=== PATIENT | male | born 1960 | race Caucasian/White ===

== ENCOUNTER 2017-10-03 14:05 | Emergency (ER) | payer OTHER, SELFPAY ==
[2017-10-03 14:22] VITALS: BP 151/105; PULSE 86; RESP 14; TEMP 36.9; O2SAT 97; BMI 30.1
--- NOTE | 2017-10-03 15:19 | ED.SKABFB ---
HPI - Skin/Abscess/Foreign Bdy <Germaine Gee PA-C - Last Filed: 10/03/17 22:27> General Chief complaint: Skin/Abscess/Foreign Body Stated complaint: RIGHT ARM TENDER AND RED Time Seen by Provider: 10/03/17 15:19 Source: patient Mode of arrival: ambulatory Limitations: no limitations History of Present Illness HPI narrative: This 57-year-old male comes in due to right wrist and forearm pain and redness. He states that he had an IV yesterday near the right wrist, seemed okay right after but then today noticed that the area around the vein seem tender and has had increasing redness. He states he is not having any weakness, paresthesia or difficulty moving the wrist or arm but it is a little bit tender when the skin is stretched. He has not had any fever, chills, or sweats at home. He denies any other new symptoms or complaints today. Related Data Previous Rx's Medication Instructions Recorded cephalexin [Keflex] 500 mg PO Q6H 7 Days #28 cap 10/03/17 Allergies Allergy/AdvReac Type Severity Reaction Status Date / Time No Known Drug Allergies Allergy Verified 10/03/17 14:22 Review of Systems <Germaine Gee PA-C - Last Filed: 10/03/17 22:27> Review of Systems All systems reviewed & are unremarkable except as noted in HPI and below Exam <Germaine Gee PA-C - Last Filed: 10/03/17 22:27> Narrative Exam Narrative: GENERAL APPEARANCE: Patient sitting comfortably, in no distress. LUNGS: Clear to auscultation bilaterally. HEART: Rate and rhythm regular without murmur, normal S1 and S2, no S3 or S4. DERM: Right mid wrist dorsum there is a tender, mildly enlarged vein. Tender along the course of the vein but there is also erythema in an irregular pattern extending up to the mid forearm, more notable on the lateral and midline. Margins Inked. This does not extend down to the hand or up past the mid arm. There is no erythema on the anterior surface. MS: Full AROM of the R. wrist, hand and elbow Initial Vital Signs Initial Vital Signs: Vital Signs Temperature 98.5 F 10/03/17 14:22 Pulse Rate 86 10/03/17 14:22 Respiratory Rate 14 10/03/17 14:22 Blood Pressure 151/105 H 10/03/17 14:22 Pulse Oximetry 97 10/03/17 14:22 <Edilberto Parham MD - Last Filed: 10/04/17 18:17> Initial Vital Signs Initial Vital Signs: Vital Signs Temperature 98.5 F 10/03/17 14:22 Pulse Rate 86 10/03/17 14:22 Respiratory Rate 14 10/03/17 14:22 Blood Pressure 151/105 H 10/03/17 14:22 Pulse Oximetry 97 10/03/17 14:22 Course <Germaine Gee PA-C - Last Filed: 10/03/17 22:27> Vital Signs - 8 hr 10/03/17 14:22 Temperature 98.5 F Pulse Rate 86 Respiratory Rate 14 Blood Pressure 151/105 H Pulse Oximetry 97 <Edilberto Parham MD - Last Filed: 10/04/17 18:17> Vital Signs - 8 hr 10/03/17 14:22 Temperature 98.5 F Pulse Rate 86 Respiratory Rate 14 Blood Pressure 151/105 H Pulse Oximetry 97 Discharge Plan Departure Patient Disposition: Home, Self-Care Clinical Impression: Cellulitis, Phlebitis Discharge Date/Time: 10/03/17 15:36 Interventions: ED Discharge Assessment Last Done: 10/03/17 15:36 Instructions: DI for Cellulitis -- Adult Activity Restrictions/Additional Instructions: Return as we talked about if you have acutely worsening symptoms, or new symptoms such as fever. Otherwise, start the antibiotic as soon as you pick it up and take about every 6 hr/4 times daily. You can use a warm pack over the sore vein as needed and take ibuprofen every 8 hr for pain and swelling. We recommend that you follow up with your PCP in a few days to assess progress on the antibiotic Prescriptions: New cephalexin [Keflex] 500 mg capsule 500 mg PO Q6H 7 Days Qty: 28 RF: 0 Referrals: HECTOR, Kirk Chaudhry [Other] <Edilberto Parham MD - Last Filed: 10/04/17 18:17> Cosign ED Attending Cosignature Attestation: I was available in the emergency department to answer questions and assist if needed. I agree with the document content and management plan.
== END 2017-10-03 15:36 | disposition home or self-care (01) ==
PROVIDERS: Emergency Provider Internal Medicine
DX: L03.113 Cellulitis of right upper limb (principal)
CPT/HCPCS: 99282

== ENCOUNTER → 2018-01-31 11:08 | Outpatient (CLI) | payer OTHER, SELFPAY ==
--- NOTE | 2018-01-31 | DI.CT.S_ITS ---
PROCEDURE: CT UE RT WO CON INDICATIONS: Pain in right elbow unable to straigten TECHNIQUE: Noncontrast 1-1.5 mm axial sections were acquired through the elbow joint, with coronal and sagittal reformats. COMPARISON: None. FINDINGS: Image quality: Excellent. Bones: No definite fracture or focal osseous destruction. There is extensive diffuse degenerative spurring and bulky osteophyte formation. Alignment is anatomic. Sub-5 mm chronic appearing ossicle seen adjacent to the olecranon within the posterior joint space for example image 44 series 4. These could be ununited osteophytes or loose bodies. Additional sub-5 mm possible loose body seen on image 64 series 5 of the junction of the radiocapitellar and ulnotrochlear articulation. There is narrowing of the radiocapitellar and ulnotrochlear joint spaces. Soft tissues: Grossly unremarkable appearance of the visualized muscles. A small joint effusion is present. IMPRESSION: Advanced right elbow joint degeneration. Bulky osteophyte formation. Sub-5 mm multiple loose bodies as above Joint effusion. Dictated by: Venkata Coronado M.D. on 01/31/2018 at 11:43 Approved by: Venkata Coronado M.D. on 01/31/2018 at 11:51
== END ==
PROVIDERS: Visit Provider Internal Medicine
DX: M19.021 Primary osteoarthritis, right elbow (principal); M25.521 Pain in right elbow; M24.021 Loose body in right elbow; M25.421 Effusion, right elbow
CPT/HCPCS: 73200

== ENCOUNTER 2022-03-28 08:33 | Emergency (ER) | payer OTHER, SELFPAY ==
[2022-03-28 08:53] VITALS: BP 156/84; PULSE 59; RESP 16; TEMP 36.7; O2SAT 97
[2022-03-28 08:54] VITALS: BP 156/84; PULSE 59; O2SAT 97
[2022-03-28 09:07] VITALS: BP 157/100; PULSE 66; RESP 18; TEMP 37.1; O2SAT 97; BMI 30.8
--- NOTE | 2022-03-28 09:07 | ED_ITS ---
HPI - Eye Problem General Chief complaint: Eye Problems Stated complaint: Flashing and floater in [place] x2 Time Seen by Provider: 03/28/22 09:07 History of Present Illness HPI Narrative: Patient here for floaters in his vision with the left eye. Patient states feels the same with his right retina detachment last year. Never had sensation of curtain been drawn down on the right eye last year or with the left eye this time. This episode started 2 days ago. Denies any injury. Patient wears glasses for far distance and for reading only. No contact lenses. No history of glaucoma or cataracts. On left eye visual acuity is 20/15. Patient is 20/13 for both eyes. Denies any eye pain. No double vision or blurry vision. Patient saw [facility] in [place] [facility] to [facility] Related Data Allergies Allergy/AdvReac Type Severity Reaction Status Date / Time No Known Drug Allergies Allergy Verified 10/03/17 14:22 Review of Systems Review of Systems Narrative: GENERAL: negative chills, fatigue, malaise, fever, sweats. HEENT: negative sinus pain, ear pain, sore throat, positive visual changes, negative eye pain RESPIRATORY: negative dyspnea, cough CARDIOVASCULAR: negative chest pain, palpitations GASTROINTESTINAL: negative nausea, vomiting, abdominal pain : negative dysuria, frequency, hematuria MUSCULOSKELETAL: negative muscle or bony pain SKIN: negative rash, skin lesions NEUROLOGIC: negative weakness, numbness ROS Unobtainable: All systems reviewed & are unremarkable except as noted in HPI and below Patient History Medical History Prostate cancer Surgical History History of appendectomy Exam Narrative Exam Narrative: GENERAL: in no distress, not toxic not dyspneic HEAD: Normocephalic. EYES: Pupils equal round No scleral icterus., normal bilateral conjunctiva. PERRLA, no photophobia. Fundoscopy of left eye, no papilledema. ENT: Mucous membranes moist. SKIN: Warm and dry PSYCH: Not anxious, is cooperative Initial Vital Signs Initial Vital Signs: Vital Signs Temperature 98.0 F 03/28/22 08:53 Pulse Rate 59 L 03/28/22 08:53 Respiratory Rate 16 03/28/22 08:53 Blood Pressure 156/84 H 03/28/22 08:53 Pulse Oximetry 97 03/28/22 08:53 Course Course Course Narrative: No new issues during course of stay Reevaluation(s) Reevaluation #1: Spoke with patient my conversation with his ophthalmology group. He agrees to go to the office now. Time: 11:04 Consultations Consultation #1: Spoke with ophthalmology dr boateng, instructs for patient to go to his office now. Time: 11:04 Vital Signs Vital signs: Vital Signs - 8 hr 03/28/22 08:53 03/28/22 08:54 03/28/22 08:54 Temperature 98.0 F Pulse Rate 59 L 59 L Respiratory Rate 16 Blood Pressure 156/84 H 156/84 H Pulse Oximetry 97 97 Oxygen Delivery Method 03/28/22 09:07 03/28/22 09:11 Temperature 98.7 F Pulse Rate 66 66 Respiratory Rate 18 18 Blood Pressure 157/100 H 157/100 H Pulse Oximetry 97 97 Oxygen Delivery Method Room Air Room Air MDM - Eye Problem Differential Diagnosis Differential diagnosis: Likely corneal abrasion, conjunctivitis, hyphema, glaucoma and other (Retinal detachment) MDM Narrative Medical decision making narrative: Appropriate for discharge home. No changes with vision during course of stay. I did speak with on-call jet ski mechanic for patient's group and wants to see patient now in the office. Discharge Plan Departure Patient Disposition: Home Clinical Impression: Detached retina, left Instructions: DI for Detached Retina Activity Restrictions/Additional Instructions: Please go to your ophthalmology/Retina Center now in [place]. Dr Boateng is expecting you. Do not eat or drink anything until you get to the office. Return if worse if any questions or concerns Visit Report Forms: Patient Portal/API
[2022-03-28 09:11] VITALS: BP 157/100; PULSE 66; RESP 18; O2SAT 97
== END 2022-03-28 11:12 | disposition home or self-care (01) ==
PROVIDERS: Emergency Provider Emergency Medicine
DX: H33.22 Serous retinal detachment, left eye (principal)
CPT/HCPCS: 99281